=== PATIENT | female | born 1975 | race Two or more races ===

== ENCOUNTER 2018-05-01 05:46 | Day surgery (SDC) | payer OTHER ==
[~2018-05-01 05:46] MED LIST: COZAAR25 MG
== END 2018-05-01 13:35 | disposition home or self-care (01) ==
LOC: CIR.AMB 05:46
DX: K43.0 Incisional hernia with obstruction, without gangrene (principal)

== ENCOUNTER 2022-06-01 07:22 | Outpatient (CLI) | payer OTHER | END 2022-06-01 07:32 | disposition home or self-care (01) | LOC: MAMO-SONO 07:22 | PROVIDERS: ATTEND Family Medicine | DX: D48.60 Neoplasm of uncertain behavior of unspecified breast (principal) ==

== ENCOUNTER 2023-01-16 08:01 | Outpatient (CLI) | payer OTHER | END 2023-01-16 08:16 | disposition home or self-care (01) | LOC: SONOGRAMA 08:01 | PROVIDERS: ATTEND Surgery | DX: N60.12 Diffuse cystic mastopathy of left breast (principal); N60.11 Diffuse cystic mastopathy of right breast ==

== ENCOUNTER 2023-03-23 08:35 | Outpatient (CLI) | payer OTHER | END 2023-03-23 09:11 | disposition home or self-care (01) | LOC: SONOGRAMA 08:35 | PROVIDERS: ATTEND Physical Medicine & Rehabilitation | DX: M25.512 Pain in left shoulder (principal) ==

== ENCOUNTER 2023-08-16 08:45 | Outpatient (CLI) | payer OTHER | END 2023-08-16 08:51 | disposition home or self-care (01) | LOC: MAMO-SONO 08:45 | PROVIDERS: ATTEND Surgery | DX: N60.11 Diffuse cystic mastopathy of right breast (principal); N60.12 Diffuse cystic mastopathy of left breast ==

== ENCOUNTER 2024-11-18 08:03 | Outpatient (CLI) | payer OTHER | END 2024-11-18 08:15 | disposition home or self-care (01) | LOC: MAMO-SONO 08:03 | PROVIDERS: ATTEND Obstetrics & Gynecology | DX: N63.20 Unspecified lump in the left breast, unspecified quadrant (principal); N63.10 Unspecified lump in the right breast, unspecified quadrant; Z12.31 Encounter for screening mammogram for malignant neoplasm of breast ==